=== PATIENT | male | born 1950 | race Caucasian/White ===

== ENCOUNTER 2017-08-02 09:28 | Inpatient (IN) ==
[2017-08-02] MEDS ORDERED: Aspirin 81 MG TAB.CHEW ONE (09:49)
[2017-08-02] MEDS ORDERED: 0.9 % Sodium Chloride 1,000 ML ONE ×3 (09:49→10:21)
[2017-08-02] MEDS ORDERED: *HR* Heparin 5,000 UNIT/ML VIAL ONE (09:49)
[2017-08-02] MEDS ORDERED: *HR* Ticagrelor 90 MG TABLET ONE (09:49)
[2017-08-02] MEDS ORDERED: *HR* Heparin 5,000 UNIT/ML VIAL IVP ONE (09:51)
[2017-08-02] MEDS ORDERED: *HR* Ticagrelor 90 MG TABLET PO ONE (09:51)
[2017-08-02] MEDS ORDERED: 0.9 % Sodium Chloride 1,000 ML IVC ONE (09:51)
[2017-08-02] MEDS ORDERED: Aspirin 81 MG TAB.CHEW PO ONE (09:51)
[2017-08-02 09:54] LABS: ABG Base Excess -12.7 mEq/L (-2.0 to 3.0); ABG HCO3 17 mEq/L (21-27); ABG Oxygen Saturation 100 % (95-98); ABG PCO2 50 mmHg (35-45); ABG PO2 236 mmHg (85-104); ABG TCO2 18 mEq/L (20-26)
[2017-08-02 09:56] LABS: ABG PH 7.13 pH Units (7.32-7.45); Blood Gas FiO2 100 %
[2017-08-02 09:58] LABS: Basophils # 0.1 K/mcL (0.0-0.2); Basophils % 0.7 %; Eosinophils # 0.3 K/mcL (0.0-0.6); Eosinophils % 3.3 %; Hematocrit 46.7 % (37.5-50.1); Hemoglobin 14.6 g/dL (12.9-16.9); Immature Granulocytes % 4.6 % (0-4); Lymphocytes # 2.8 K/mcL (0.6-4.6); Mean Corpuscular HGB Conc 31.3 g/dL (31.6-35.5); Mean Corpuscular Volume 95.9 fL (83.0-100.0); Mean Platelet Volume 9.2 fL (9.4-12.4); Monocytes # 0.3 K/mcL (0.0-1.3); Monocytes % 4.1 %; Neutrophils # 4.4 K/mcL (1.6-8.9); Nucleated Red Blood Cells 0.2 /100 WBC (0); Platelet Count 126 K/mcL (140-400); Red Blood Count 4.87 M/mcL (4.19-5.50); Red Cell Distribution Width 12.7 % (11.5-14.5); Segmented Neutrophils % 53.3 %
[2017-08-02] MEDS ORDERED: Sodium Bicarbonate 50 MEQ/50 ML VIAL IVP ONE (09:58)
[2017-08-02 10:04] LABS: INR 1.2; Prothrombin Time 13.3 Seconds (9.4-12.1)
--- NOTE | 2017-08-02 10:06 | Emergency Department Note ---
Disposition Clinical Impression: Cardiac arrest, Ventricular tachycardia, Respiratory acidosis, Elevated troponin STEMI (ST elevation myocardial infarction) Qualifiers: Involved coronary artery: LAD coronary artery Qualified Code(s): I21.02 - ST elevation (STEMI) myocardial infarction involving left anterior descending coronary artery Respiratory failure with hypercapnia Qualifiers: Chronicity: unspecified Qualified Code(s): J96.92 - Respiratory failure, unspecified with hypercapnia Disposition: Admitted As Inpatient Condition: Critical General Adult HPI - General Chief complaint: ED Cardiac Arrest/CPR Stated complaint: Cardiac Arrest Time Seen by Provider: 08/02/17 09:43 Source: EMS Mode of arrival: EMS Limitations: no limitations Nursing Notes Reviewed: Yes Vital Signs Reviewed: Yes - History of Present Illness HPI Narrative: 66-year-old male who according to his they went to a gas station earlier today he said he was not feeling well and has been belching and clutching his chest. His went in to get him a drink of water when she came back he was unresponsive. CPR was performed at the scene. When EMS arrived he was in V. tach and he was shocked once. He received bicarbonate by EMS. Family reports she has a past medical history of COPD. He does not have a cardiac history according to his family. He arrived with EMS after achieving ROSC. Due to severity of condition, no additional HPI is available at this time. - Related Data Home Medications Medication Instructions Recorded Confirmed Albuterol Sulfate [Albuterol 2 puff IH Q6HR PRN 08/02/17 08/02/17 Inhaler] Atorvastatin Calcium [Lipitor] 20 mg PO DAILY 08/02/17 08/02/17 Oxybutynin Chloride [Ditropan Xl] 10 mg PO DAILY 08/02/17 08/02/17 Tamsulosin HCl [Flomax] 0.4 mg PO DAILY 08/02/17 08/02/17 metFORMIN [Glucophage] 500 mg PO BIDWM 08/02/17 08/02/17 Allergies Allergy/AdvReac Type Severity Reaction Status Date / Time No Known Allergies Allergy Verified 08/02/17 10:00 Limitations: ROS unobtainable due to patients medical condition Physical Exam - General Limitations: altered mental status General appearance: obtunded - Head Head exam: atraumatic - Eye Eye exam: Present: other (right eye deviated to the right. Pupils 3mm and unresponsive) - ENT ENT exam: normal exam - Neck Neck exam: Present: normal inspection - Chest Chest inspection: Present: normal inspection - Respiratory Respiratory exam: Present: other (agonal respirations) - Cardiovascular Cardiovascular exam: Present: tachycardia - Abdominal Exam Abdominal exam: Present: soft - Extremities Exam Extremities exam: Present: normal inspection - Back Exam Back exam: Present: normal inspection - Neurological Exam Neurological exam: Present: other (obtunded. Unresponsive) - Skin Skin exam: Present: warm, dry Course Course Narrative: 66-year-old male who arrived after an arrest. When he was attached monitor he was in unresponsive ventricular tachycardia without pulse. We did 2 rounds synchronize cardioversion. During his entire stay as blood pressure never went below 120 systolic. When he arrived he was exhibiting agonal respirations was immediately intubated. See intubation note. An IO was placed and he was appearing to have a torsades type morphology on his EKG so he did receive 2 mg of magnesium and he received calcium gluconate. Initial EKG showed V. tach. Follow-up EKG showed possible lateral ST elevation which was confirmed on a third EKG. Third EKG shows definite lateral ST elevation with inferior reciprocal changes in 23 and aVF. STEMI alert was called and I personally spoke with the interventional list. I sent him the EKGs and he agreed to come in and see the patient. The initial call to the interventional was was at 948. Bedside ultrasound did demonstrate bilateral lung sliding. The patient did receive aspirin, brilinta, heparin. His pH did return as low with a respiratory acidosis. While we are correcting this with the ventilator I did order sodium bicarbonate EKG #1 shows V. tach with a rate of 185. Wide complex V. tach with possible ST changes in the lateral leads. Possible ST elevation in V4 and V5. EKG #2 demonstrates wide complex tachycardia with a rate of 140. The rhythm changes frequently throughout the EKG but again there is possible ST elevation in leads V4 V5 and V6. This EKG now demonstrates possible ST depression in leads 2, 3, aVF. After this EKG a page was put out to the maintenance superintendent. EKG #3. EKG demonstrates obvious lateral ST elevation OR with reciprocal changes of ST depression in leads [address] elevation in lead V3, V4, V5. Rate of 116. These EKGs were compared to prior EKGs with significant changes noted as prior he had a relatively normal EKG with left axis deviation and sinus rhythm. After being on the amiodarone drip he began to breathe over the ventilator and have some agitation so he did receive 4 mg of Versed while waiting for the [employer] team. Vital Signs Respiratory Rate 21 08/02/17 09:32 O2 Sat by Pulse Oximetry 100 08/02/17 09:32 Temperature 97.0 F L 08/02/17 10:01 Pulse Rate 109 08/02/17 10:28 Respiratory Rate 24 08/02/17 10:38 Blood Pressure 112/76 08/02/17 10:38 O2 Sat by Pulse Oximetry 97 08/02/17 10:28 Oxygen Delivery Oxygen Delivery Ventilator Procedures - Intubation Time out performed: No sedative: none Laryngoscope: Shekhar ET Tube Size: 7.5 ET Tube Uncuffed: No Tube Secured Depth (cm): 22 Tube Secured Location: lips Tube Placement Confirmation: visualized tube passing through cords, equal breath sounds bilaterally, no breath sounds over epigastrium, confirmation by capnometry Patient Tolerated Procedure: well Intubation Complications: none Medical Decision Making - Medical Records Medical records reviewed: Yes I reviewed the patient's medical records. - Lab Data Lab results reviewed: Yes I reviewed the patient's lab results. Result diagrams: 08/02/17 09:36 08/02/17 09:36 Lab Results 08/02/17 08/02/17 08/02/17 Range/Units 09:36 09:36 09:36 WBC 8.2 (4.3-11.1) K/mcL RBC 4.87 (4.19-5.50) M/mcL Hgb 14.6 (12.9-16.9) g/dL Hct 46.7 (37.5-50.1) % MCV 95.9 (83.0-100.0) fL MCH 30.0 (28.0-33.3) pg MCHC 31.3 L (31.6-35.5) g/dL RDW 12.7 (11.5-14.5) % Plt Count 126 L (140-400) K/mcL MPV 9.2 L (9.4-12.4) fL Immature Gran % 4.6 H (0-4) % Seg Neutrophils % 53.3 % Lymphocytes % 34.0 % Monocytes % 4.1 % Eosinophils % 3.3 % Basophils % 0.7 % Neutrophils # 4.4 (1.6-8.9) K/mcL Lymphocytes # 2.8 (0.6-4.6) K/mcL Monocytes # 0.3 (0.0-1.3) K/mcL Eosinophils # 0.3 (0.0-0.6) K/mcL Basophils # 0.1 (0.0-0.2) K/mcL Nucleated RBCs/100 WBC 0.2 H (0) /100 WBC PT 13.3 H (9.4-12.1) Seconds INR 1.2 APTT 43.0 H (26.0-36.0) Seconds ABG pH (7.32-7.45) pH Units ABG pCO2 (35-45) mmHg ABG pO2 (85-104) mmHg ABG HCO3 (21-27) mEq/L ABG Total CO2 (20-26) mEq/L ABG O2 Saturation (95-98) % ABG Base Excess (-2.0 to 3.0) mEq/L Blood Gas Modality Inspired O2 % Sodium 139 (136-145) mEq/L Potassium 3.0 L (3.5-4.5) mEq/L Chloride 101 (98-109) mEq/L Carbon Dioxide 20 (19-29) mEq/L BUN 14 (8-26) mg/dL Creatinine 1.31 H (0.72-1.25) mg/dL Est GFR ( Amer) > 60 (> 60) Est GFR (Non-Af Amer) 55 L (> 60) BUN/Creatinine Ratio 11 (6-26) Glucose 409 H (70-99) mg/dL Calculated Osmolality 306 H (280-300) Calcium 8.7 (8.6-10.8) mg/dL Magnesium 2.5 (1.6-2.6) mg/dL Troponin I (0-0.03) ng/mL 08/02/17 08/02/17 Range/Units 09:36 09:45 WBC (4.3-11.1) K/mcL RBC (4.19-5.50) M/mcL Hgb (12.9-16.9) g/dL Hct (37.5-50.1) % MCV (83.0-100.0) fL MCH (28.0-33.3) pg MCHC (31.6-35.5) g/dL RDW (11.5-14.5) % Plt Count (140-400) K/mcL MPV (9.4-12.4) fL Immature Gran % (0-4) % Seg Neutrophils % % Lymphocytes % % Monocytes % % Eosinophils % % Basophils % % Neutrophils # (1.6-8.9) K/mcL Lymphocytes # (0.6-4.6) K/mcL Monocytes # (0.0-1.3) K/mcL Eosinophils # (0.0-0.6) K/mcL Basophils # (0.0-0.2) K/mcL Nucleated RBCs/100 WBC (0) /100 WBC PT (9.4-12.1) Seconds INR APTT (26.0-36.0) Seconds ABG pH 7.13 L* (7.32-7.45) pH Units ABG pCO2 50 H (35-45) mmHg ABG pO2 236 H (85-104) mmHg ABG HCO3 17 L (21-27) mEq/L ABG Total CO2 18 L (20-26) mEq/L ABG O2 Saturation 100 H (95-98) % ABG Base Excess -12.7 L (-2.0 to 3.0) mEq/L Blood Gas Modality ASSIST CONTROL Inspired O2 100 % Sodium (136-145) mEq/L Potassium (3.5-4.5) mEq/L Chloride (98-109) mEq/L Carbon Dioxide (19-29) mEq/L BUN (8-26) mg/dL Creatinine (0.72-1.25) mg/dL Est GFR ( Amer) (> 60) Est GFR (Non-Af Amer) (> 60) BUN/Creatinine Ratio (6-26) Glucose (70-99) mg/dL Calculated Osmolality (280-300) Calcium (8.6-10.8) mg/dL Magnesium (1.6-2.6) mg/dL Troponin I 0.06 H* (0-0.03) ng/mL - Radiology Data Radiology results reviewed: Yes I reviewed the patient's radiology results. Critical Care Time Critical Care Time: Yes Total Critical Care Time: 60 Attestation: The high probability of a clinically significant, sudden or life threatening deterioration of the [CV] system(s) required my full and direct attention, intervention and personal management. The aggregate critical care time was [60] minutes. This time is in addition to time spent performing reported procedures but includes the following: [X] Data Review and interpretation [X] Patient assessment and monitoring of vital signs [X] Documentation [X] Medication orders and management Attestation Statement - Attestation Attestation: I examined this patient and my medical decision-making was reviewed with the Resident Physician, Dr. Jay. I agree with the documented findings, disposition and treatment plan as described except to the extent set forth below. Patient is a 66-year-old white male who is brought to us by EMS in cardiac arrest from a gas station. Reports from EMS states that the patient had been complaining of some chest discomfort when pulling into a gas station. His and indicated some water and when she came back she found slumped over the steering wheel. They called 911 and EMS reports that bystander CPR had been in progress when they arrived. Upon their arrival the found the patient to be in V. tach IV was established via intraosseous access and patient was defibrillated. Patient had also received epi 2 and one amp of bicarbonate in route. On arrival to the ED patient had palpable pulses and was in ventricular tachycardia. Patient was unresponsive and cyanotic. Patient was defibrillated on arrival with a subsequent tachycardic rhythm. Blood pressure was stable following defibrillation. Patient was intubated as he obtained 2 peripheral IVs , continued him on monitor and storage bin tender and pulse ox, patient placed on ventilator support with clear and equal breath sounds bilaterally following intubation. NG tube was placed and James catheter was placed. Portal chest x-ray was obtained which was negative for pneumothorax, mild pulmonary edema with adequate ET tube and NG tube placement. Patient's heart rate slowed to the 120s and we repeated an EKG which now shows clear lateral ST elevation. We immediately called the interventional list who called in the catheter team. Patient remained sinus tachycardia with stable blood pressure. Patient was started on mild sedation on the ventilator but no purposeful movements have been scenes since arrival. I agree with physical exam findings both on arrival and reevaluation of patient. I was present and supervised the intubation performed by Dr. Jay. Please see procedure note for details. Patient was started on aspirin to the NG tube, Brilinta and heparin drip. Patient was transported to the catheter lab upon their arrival. Patient's troponin was elevated. Discussed findings of our evaluation with patient's and emphasized his critical condition at this time. Following Lab patient transported to the ICU for cardiac arrest secondary to ST elevation OR.
[2017-08-02 10:09] LABS: BUN/Creatinine Ratio 11 (6-26); Blood Urea Nitrogen 14 mg/dL (8-26); Calcium 8.7 mg/dL (8.6-10.8); Carbon Dioxide 20 mEq/L (19-29); Chloride 101 mEq/L (98-109); Glucose 409 mg/dL (70-99); Magnesium 2.5 mg/dL (1.6-2.6); Osmolality,Calculated 306 (280-300); Sodium 139 mEq/L (136-145); eGFR For African Americans > 60 (> 60); eGFR For Non-African Americans 55 (> 60)
[2017-08-02] MEDS ORDERED: *HR* Heparin 10,000 UNIT/10 ML VIAL ONE (10:14)
[2017-08-02] MEDS ORDERED: Heparin 1,000 UNITS/500 mL NS 0 ML ONE (10:14)
[2017-08-02] MEDS ORDERED: Nitroglycerin 1,000 MCG/10 ML VIAL IV ONE (10:15)
[2017-08-02] MEDS ORDERED: *HR* FentaNYL (PF) 250 MCG/5 ML VIAL ONE (10:21)
[2017-08-02] MEDS ORDERED: Heparin 1,000 UNITS/500 mL NS 500 ML ONE (10:21)
[2017-08-02] MEDS ORDERED: *HR* Midazolam HCl 5 MG/5 ML VIAL IVP ONE ×3 (10:21→18:25)
[2017-08-02] MEDS ORDERED: *HR* Phenylephrine 10 MG/ML VIAL ONE (10:24)
[2017-08-02 10:52] VITALS: BP 112/76
[2017-08-02] MEDS ORDERED: Tirofiban 12.5 MG/250ML 12.5 MG/250 ML BAG ONE (11:06)
[2017-08-02 11:41] LABS: ABG Base Excess -9.4 mEq/L (-2.0 to 3.0); ABG HCO3 18 mEq/L (21-27); ABG Oxygen Saturation 75 % (95-98); ABG PCO2 46 mmHg (35-45); ABG PH 7.21 pH Units (7.32-7.45); ABG TCO2 20 mEq/L (20-26)
[2017-08-02 11:42] LABS: Blood Gas FiO2 100 %
[2017-08-02 11:44] LABS: ABG PO2 49 mmHg (85-104)
[2017-08-02] MEDS ORDERED: Furosemide 40 MG/4 ML VIAL ONE (11:46)
[2017-08-02] MEDS ORDERED: Furosemide 40 MG/4 ML VIAL IVP ONE (12:01)
[2017-08-02] MEDS ORDERED: Tirofiban 12.5 MG/250ML 12.5 MG/250 ML BAG IVC SCH (12:15)
[2017-08-02] MEDS ORDERED: Lacri-Lube 3.5 GM TUBE BOTH EYES PRN (12:26)
[2017-08-02] MEDS ORDERED: FentaNYL (PF) 1,000 MCG in 0.9 % Sodium Chloride 80 ML IVC SCH (12:30)
[2017-08-02] MEDS ORDERED: Dexmedetomidine HCl 400 MCG/100 ML MLS IVC SCH (12:30)
[2017-08-02] MEDS ORDERED: Amiodarone Premix 360 MG/200 ML BAG IVC ONE (12:32)
[2017-08-02] MEDS ORDERED: 0.9 % Sodium Chloride 500 ML ONE (12:42)
[2017-08-02] MEDS ORDERED: Norepinephrine 4 MG in D5% in Water 250 ML IVC SCH (12:45)
--- NOTE | 2017-08-02 12:46 | Cardiology Consult Note ---
Date of Encounter: 08/02/17 Time of Encounter: 10:00 Assessment and Plan (1) Cardiac arrest Current Visit: Yes Status: Acute (2) Elevated troponin Current Visit: Yes Status: Acute (3) STEMI (ST elevation myocardial infarction) Current Visit: Yes Status: Acute Emergent cardiac cath Qualifiers: Qualified Code(s): I21.02 - ST elevation (STEMI) myocardial infarction involving left anterior descending coronary artery (4) Ventricular tachycardia Current Visit: Yes Status: Acute Amiodarone drip Discussion w patient/family: The assessment and plan as outlined above was discussed with the patient and/or family members who expressed understanding and agreement. All questions were answered. Thank you for involving us in the care of your patient. Please call with any questions. History of Present Illness Consult date: 08/02/17 History of present illness: Mr. Carlos is a 66 year old male who presented to the emergency room after cardiopulmonary arrest he has no prior known cardiac history. the patient at the time my evaluation is intubated and unresponsive and thus the history is obtained from the family and the ER staff. The states the patient was having intermittent chest pain and general feeling poorly all morning long. As a trauma to the gas station and she went into by a water when she returned she found her slumped over the steering wheel unconscious. She went back inside to call 911 S bystander CPR was reportedly started. The EMS arrived and is reported the patient was in ventricular tachycardia he received at least one shock along with 300 mg bolus of amiodarone. He was brought to the emergency room where he received at least 2 additional shocks and was started on IV drip was also intubated the states the symptoms are new started this morning they were persistent for several hours there is no precipitating or relieving factors Past Med Surg Social Fam HX - Past Medical History Medical history: COPD, diabetes Psychiatric history: no psych history - Social History Smoking Status: Current every day smoker Smokeless Tobacco Status: No Alcohol use: none Drug use: none Medications and Allergies Albuterol Sulfate [Albuterol Inhaler] 2 puff IH Q6HR PRN 08/02/17 [History] Atorvastatin Calcium [Lipitor] 20 mg PO DAILY 08/02/17 [History] Oxybutynin Chloride [Ditropan Xl] 10 mg PO DAILY 08/02/17 [History] Tamsulosin HCl [Flomax] 0.4 mg PO DAILY 08/02/17 [History] metFORMIN [Glucophage] 500 mg PO BIDWM 08/02/17 [History] 3 Allergy/AdvReac Type Severity Reaction Status Date / Time No Known Allergies Allergy Verified 08/02/17 10:00 All Systems Review: A 10-system review of systems was performed and is negative for pertinent findings except as documented above in the HPI. Physical Examination Vital Signs, Last 4 Hours Pulse Resp BP Pulse Ox 08/02/17 10:38 24 112/76 08/02/17 10:28 109 24 112/76 97 08/02/17 10:16 96 08/02/17 10:12 107 22 115/76 97 General: Other (intubated, unresponsive) HEENT: Atraumatic, Normocephaly, Mucus Membranes Moist, Other (ET tube in place) Neck: No JVD, Normal carotid pulses Cardiac: Reg Rate and Rhythm, Normal S1 and S2, No Murmur Lungs: Other (coarse breath sounds) Neuro: Other (unresponsive) Abdomen: Soft Skin: No rashes noted on visualized skin Extremities: No Clubbing, No Cyanosis, No Edema, Normal Pulses Results 08/02/17 09:36 08/02/17 09:36 Consult Discharge Plan - Plan Referrals: Graham Anguiano MD [Primary Care Provider] -
[2017-08-02] MEDS ORDERED: *HR* Dextrose 50 % in Water (Syg) 50 ML SYRINGE IVP PRN (12:53)
[2017-08-02] MEDS ORDERED: Dextrose Gel 15 GM PO PRN ×2 (12:53)
[2017-08-02] MEDS ORDERED: D5% in Water 1,000 ML IVC PRN (12:53)
--- NOTE | 2017-08-02 12:57 | Pulmonology Consult Note ---
<Viki Escalante - Last Filed: 08/02/17 13:43> Date of Encounter: 08/02/17 Time of Encounter: 12:56 Assessment and Plan (1) Acute respiratory failure with hypoxemia Current Visit: Yes Status: Acute Patient hypoxic before cardiac catheterization. Patient was intubated in the ED. Repeat ABG and adjust the vent settings as needed. (2) Cardiac arrest Current Visit: Yes Status: Acute Patient arrested outside of the hospital with unknown amount of down time. Bystanders completed CPR but qualities questionable. Patient had ROSC in the emergency department. (3) STEMI (ST elevation myocardial infarction) Current Visit: Yes Status: Acute EKG completed in the ED showed STEMI. Emergent cardiac catheterization was completed with stent placement in the LAD. Qualifiers: Involved coronary artery: LAD coronary artery Qualified Code(s): I21.02 - ST elevation (STEMI) myocardial infarction involving left anterior descending coronary artery (4) Ventricular tachycardia Current Visit: Yes Status: Acute Patient episode of V. tach per EMS. Cardioverted once by EMS and twice in the ED (5) Elevated troponin Current Visit: Yes Status: Acute Elevated at 0.06. We will continue to trend. (6) DVT prophylaxis Current Visit: Yes Status: Acute Subcutaneous heparin History of Present Illness Consult date: 08/02/17 Reason for consult: other (Cardiac arrest/Acute Respiratory Failure) Chief complaint: Acute Respiratory Failure/Cardic Arrest History of present illness: 66-year-old male who according to his they went to a gas station earlier today he said he was not feeling well and has been belching and clutching his chest. His went in to get him a drink of water when she came back he was unresponsive. Bystander CPR was performed at the scene. When EMS arrived he was in V. tach and he was shocked once. He received bicarbonate by EMS. Family reports she has a past medical history of COPD. He does not have a cardiac history according to his family.He arrived with EMS after achieving ROSC. Patient at the time of my evaluation is intubated and unresponsive and thus the history is obtained from the family and charts. Patient received at least one shock from EMS along with 300 mg bolus of amiodarone. He was brought to the emergency room where he received at least 2 additional shocks and was started on IV drip was also intubated.The states the symptoms are new started this morning they were persistent for several hours there is no precipitating or relieving factors. Patient did receive aspirin, brilinta, heparin. Patient sent to candlemaking laborer from the emergency department. Upon presentation to the ICU patient is very unstable with hypotension and diffuse mottling. Past Med Surg Social Fam HX - Past Medical History Medical history: COPD, diabetes Psychiatric history: no psych history - Social History Smoking Status: Current every day smoker Smokeless Tobacco Status: No Alcohol use: none Drug use: none Medications and Allergies Albuterol Sulfate [Albuterol Inhaler] 2 puff IH Q6HR PRN 08/02/17 [History] Atorvastatin Calcium [Lipitor] 20 mg PO DAILY 08/02/17 [History] Oxybutynin Chloride [Ditropan Xl] 10 mg PO DAILY 08/02/17 [History] Tamsulosin HCl [Flomax] 0.4 mg PO DAILY 08/02/17 [History] metFORMIN [Glucophage] 500 mg PO BIDWM 08/02/17 [History] 3 Allergy/AdvReac Type Severity Reaction Status Date / Time No Known Allergies Allergy Verified 08/02/17 10:00 ROS unobtainable: due to endotracheal tube All Systems: A 10-system review of systems was performed and is negative for pertinent findings except as documented above in the HPI. Physical Examination Vital Signs: Vital Signs, Last 4 Hours Pulse Resp BP Pulse Ox 08/02/17 10:38 24 112/76 08/02/17 10:28 109 24 112/76 97 08/02/17 10:16 96 08/02/17 10:12 107 22 115/76 97 General appearance: comatose Eyes: nonicteric ENT: oropharynx dry Neck: supple, no JVD Effort: mildly labored Auscultation: bilateral: diminished breath sounds Cardiovascular: PVC's noted Gastrointestinal: normoactive bowel sounds, non-distended Integumentary: other (Diffuse mottling) Extremities: pulses normal, cool Musculoskeletal: no deformities unable to assess due to mental status Results - Laboratory Findings CBC and BMP: 08/02/17 09:36 08/02/17 09:36 ABG ABG pH 7.21 pH Units (7.32-7.45) L 08/02/17 11:30 ABG pCO2 46 mmHg (35-45) H 08/02/17 11:30 ABG pO2 49 mmHg (85-104) L* D 08/02/17 11:30 ABG O2 Saturation 75 % (95-98) L 08/02/17 11:30 PT/INR, D-dimer PT 13.3 Seconds (9.4-12.1) H 08/02/17 09:36 Abnormal lab findings: Abnormal lab results MCHC 31.3 g/dL (31.6-35.5) L 08/02/17 09:36 Plt Count 126 K/mcL (140-400) L 08/02/17 09:36 MPV 9.2 fL (9.4-12.4) L 08/02/17 09:36 Immature Gran % 4.6 % (0-4) H 08/02/17 09:36 Nucleated RBCs/100 WBC 0.2 /100 WBC (0) H 08/02/17 09:36 PT 13.3 Seconds (9.4-12.1) H 08/02/17 09:36 APTT 43.0 Seconds (26.0-36.0) H 08/02/17 09:36 ABG pH 7.21 pH Units (7.32-7.45) L 08/02/17 11:30 ABG pCO2 46 mmHg (35-45) H 08/02/17 11:30 ABG pO2 49 mmHg (85-104) L* D 08/02/17 11:30 ABG HCO3 18 mEq/L (21-27) L 08/02/17 11:30 ABG O2 Saturation 75 % (95-98) L 08/02/17 11:30 ABG Base Excess -9.4 mEq/L (-2.0 to 3.0) L 08/02/17 11:30 Potassium 3.0 mEq/L (3.5-4.5) L 08/02/17 09:36 Creatinine 1.31 mg/dL (0.72-1.25) H 08/02/17 09:36 Est GFR (Non-Af Amer) 55 (> 60) L 08/02/17 09:36 Glucose 409 mg/dL (70-99) H 08/02/17 09:36 POC Glucose 337 (58-89) H 08/02/17 12:19 Calculated Osmolality 306 (280-300) H 08/02/17 09:36 Troponin I 0.06 ng/mL (0-0.03) H* 08/02/17 09:36 - Diagnostic Findings Chest x-ray: report reviewed, image reviewed Consult Discharge Plan - Plan Referrals: Graham Anguiano MD [Primary Care Provider] - <DarrellHéctor W - Last Filed: 08/02/17 14:31> Date of Encounter: 08/02/17 All Systems: A 10-system review of systems was performed and is negative for pertinent findings except as documented above in the HPI. Physical Examination Vital Signs: Vital Signs, Last 4 Hours Pulse Resp BP Pulse Ox 08/02/17 10:38 24 112/76 08/02/17 10:28 109 24 112/76 97 Ventilator Settings Ventilator Settings: Ventilator Settings, Last 8 Hours Ventilator Mode A/C Ventilator Tidal Volume 500 Setting Ventilator Respiratory Rate 12 Setting Positive End Expiratory 8 Pressure Results - Laboratory Findings CBC and BMP: 08/02/17 09:36 08/02/17 09:36 ABG ABG pH 7.07 pH Units (7.32-7.45) L* D 08/02/17 13:17 ABG pCO2 58 mmHg (35-45) H 08/02/17 13:17 ABG pO2 56 mmHg (85-104) L 08/02/17 13:17 ABG O2 Saturation 74 % (95-98) L 08/02/17 13:17 PT/INR, D-dimer PT 13.3 Seconds (9.4-12.1) H 08/02/17 09:36 Abnormal lab findings: Abnormal lab results MCHC 31.3 g/dL (31.6-35.5) L 08/02/17 09:36 Plt Count 126 K/mcL (140-400) L 08/02/17 09:36 MPV 9.2 fL (9.4-12.4) L 08/02/17 09:36 Immature Gran % 4.6 % (0-4) H 08/02/17 09:36 Nucleated RBCs/100 WBC 0.2 /100 WBC (0) H 08/02/17 09:36 PT 13.3 Seconds (9.4-12.1) H 08/02/17 09:36 APTT 43.0 Seconds (26.0-36.0) H 08/02/17 09:36 ABG pH 7.07 pH Units (7.32-7.45) L* D 08/02/17 13:17 ABG pCO2 58 mmHg (35-45) H 08/02/17 13:17 ABG pO2 56 mmHg (85-104) L 08/02/17 13:17 ABG HCO3 17 mEq/L (21-27) L 08/02/17 13:17 ABG Total CO2 19 mEq/L (20-26) L 08/02/17 13:17 ABG O2 Saturation 74 % (95-98) L 08/02/17 13:17 ABG Base Excess -13.7 mEq/L (-2.0 to 3.0) L 08/02/17 13:17 Potassium 3.0 mEq/L (3.5-4.5) L 08/02/17 09:36 Creatinine 1.31 mg/dL (0.72-1.25) H 08/02/17 09:36 Est GFR (Non-Af Amer) 55 (> 60) L 08/02/17 09:36 Glucose 409 mg/dL (70-99) H 08/02/17 09:36 POC Glucose 337 (58-89) H 08/02/17 12:19 Calculated Osmolality 306 (280-300) H 08/02/17 09:36 Troponin I 0.06 ng/mL (0-0.03) H* 08/02/17 09:36 - Attending Attestation I examined this patient and my medical decision-making was reviewed with the Resident Physician. I agree with the documented findings, disposition and treatment plan as described except to the extent set forth below. We independently had [id number] contact with the patient I spent 65min of Critical Care time with this patient. It involved decision making of high complexity to assess, manipulate, and support vital organ system failure and/or to prevent further life threatening deterioration of the patient' s condition. The time involved in the performance of separately reportable procedures was not counted toward critical care time. Patient seen and examined at bedside Labs, radiology, chart personally reviewed. 66-year-old gentleman with past medical history of COPD who presented to ED by EMS after sustaining [id number] cardiac arrest leading to intubation and mechanical ventilation On admission to ED was hypoxic taken emergently to the catheter lab for STEMI. He underwent successful PCI to the LAD however noted to have worsening hypoxemia and was transferred to the ICU for further management. I admission to ICU initial blood pressure had a map rated and 65 however he quickly became hypotensive requiring levo fed infusion presented to be severely hypoxemic and mottled such that SaO2 monitoring could not keep a consistent waveform and serial arterial blood gases were needed for analysis. Blood gas was notable for a combined respiratory and metabolic acidosis and hypoxemia. was was requiring 100% FiO2 and 10-12 of PEEP to maintain PaO2 greater than 55. Chest x-ray was notable for bilateral patchy airspace disease of unclear etiology possibly related to cardiogenic pulmonary edema versus ARDS versus hemorrhage although there is no evidence of bleeding at the time of admission to ICU. There was no evidence of pneumothorax radiographically or clinically on admission to the ICU. Neurologically patient had reactive pupils and was noted to breathe over the vent however he had no purposeful neurologic movements and did not respond to painful stimuli. At this point I brought the family into the counseling office in he ICU and had brief minute meeting with the patient's and son and 2 daughters explaining the severity of his illness and overall poor prognosis given refractory hypoxemic respiratory failure and cardiogenic shock. There were clearly emotional at the dose of the severity of his clinical condition. Our initial plan was for deep sedation and neuromuscular blockade to improve hypoxemia and hopefully institute hypothermia protocol for [id number] cardiac arrest with significant neurologic dysfunction however he became increasingly cardiovascularly unstable. Despite maximal doses of levophed mean arterial pressure was below 60 and additional vasopressors were requested unfortunately patient had another cardiac arrest and ACLS was performed after approximately 3 cycles of ACLS the endotracheal tube was noted to hemorrhage blood and his chest wall was essentially broken to the point that chest compressions were directly performed on viscera. At the sign of such dramatic hemorrhage I felt that further attempts at cardiopulmonary resuscitation were futile and I brought the family and explained that the patient had . I offered my condolences and provided emotional support and arranged for bump grader operator services.
[2017-08-02] MEDS ORDERED: Insulin LISPRO 300 UNITS/3 ML VIAL SQ SCH ×2 (13:00)
[2017-08-02] MEDS ORDERED: Vecuronium 50 MG in 0.9 % Sodium Chloride 150 ML IVC SCH (13:00)
[2017-08-02] MEDS ORDERED: EPINEPHrine 1 MG in D5% in Water 250 ML IVC SCH (13:15)
[2017-08-02] MEDS ORDERED: *HR* FentaNYL (PF) 100 MCG/2 ML VIAL IVP ONE ×2 (13:16→13:24)
[2017-08-02] MEDS ORDERED: *HR* FentaNYL (PF) 100 MCG/2 ML VIAL ONE (13:17)
[2017-08-02] MEDS ORDERED: 0.9 % Sodium Chloride 500 ML IVC ONE (13:21)
[2017-08-02 13:27] LABS: ABG Base Excess -13.7 mEq/L (-2.0 to 3.0); ABG HCO3 17 mEq/L (21-27); ABG Oxygen Saturation 74 % (95-98); ABG PCO2 58 mmHg (35-45); ABG PO2 56 mmHg (85-104); ABG TCO2 19 mEq/L (20-26)
[2017-08-02] MEDS ORDERED: Vasopressin 40 UNIT in D5% in Water 100 ML IV SCH (13:30)
[2017-08-02] MEDS ORDERED: Hydrocortisone Sodium Succ 100 MG/2 ML VIAL IVP SCH (13:30)
--- NOTE | 2017-08-02 13:45 | Death Note ---
<Viki Escalante - Last Filed: 08/02/17 13:55> Discharge Sum: Summary - Date and Time Date of admission: 08/02/17 10:04 Date of : 08/02/17 Time of : 13:35 - Summary Details: Patient presented to the emergency department after cardiac arrest in the field. Per family patient has no cardiac history. While in the field EMS had to administer bicarbonate and one cardioversion. Multiple rhythms noted while in the field including V. tach, V. fib, torsades. Upon arrival to the emergency Department patient received ROSC. Patient needed to be cardioverted to additional times while in the emergency department. Upon further examination EKG showed ST segment elevation. Troponin was elevated at 0.06. Patient was sent emergently to the pathology laboratory aide. Patient received heparin, aspirin , brilinta and a stent placement in the LAD. Upon arrival to the ICU patient was acutely hypotensive with a map of less than 30. Repeat ABG showed improved acidemia but intractable hypoxemia. Multiple pressors were started but patient acutely unstable. Patient coded and chest compressions were completed. Multiple rounds of CPR and epinephrine were given. During resuscitation effort [place] blood was noted from the ET tube. This could be possibly due to trauma prior to admission. Family at bedside and determined to discontinue resuscitation effort. Patient suffered irreversible shock and hypoxic respiratory failure. - Additional Data Confirmation of as documented by pronouncing clinician: no pulse, no respirations, no heart sounds Family: at bedside Attending/PCP notified?: Yes Attending physician: Chris Paula MD Was code activated?: Yes Autopsy requested?: No license registration examiner notified?: No Organ bank notified?: No Advance directives: No Hospice patient?: No Discharge Sum: Diag - PCOD Probable Cause of : Cardiac arrest - Contributing Factors (1) Acute respiratory failure with hypoxemia Patient acutely hypoxic on arrival to the ED. He was intubated. First ABG showed significant acidemia due to hypoxemia. (2) Cardiac arrest Patient arrested outside of the emergency department. Bystander CPR was started. Approximately 10 minutes until EMS arrived. Patient showed V. tach, V. fib and asystole throughout. Cardioverted 3 times total. (3) STEMI (ST elevation myocardial infarction) In the emergency Department patient had ST segment elevation acute myocardial infarction. Troponin slightly elevated. (4) Ventricular tachycardia Patient had an episode of V. tach per EMS and in the emergency department. Discharge Sum: Prov - Provider Primary care physician: Graham Anguiano Attending physician on admission: Héctor Ramírez Consults: 08/02/17 12:01 Consult to Cardiac Rehabilitation-Phase1 [CONS] Routine Comment: Reason for Consult: AMI Call Completed: Yes Consult to Hospitalist [CONS] Stat Consulting Provider: Hospitalist [place] Reason for Consult: resp failure, STEMI Call Completed: No Consult to Nurse Navigator [CONS] Routine Comment: Pronouncing clinician: Héctor Ramírez <Héctor Ramírez - Last Filed: 08/02/17 14:31> Discharge Sum: Summary - Date and Time Date of admission: 08/02/17 10:04 - Additional Data Attending physician: Chris Paula MD Discharge Sum: Prov - Provider Primary care physician: Graham Anguiano Consults: 08/02/17 12:01 Consult to Cardiac Rehabilitation-Phase1 [CONS] Routine Comment: Reason for Consult: AMI Call Completed: Yes Consult to Hospitalist [CONS] Stat Consulting Provider: Hospitalist [place] Reason for Consult: resp failure, STEMI Call Completed: No Consult to Nurse Navigator [CONS] Routine Comment: - Attending Attestation I examined this patient and my medical decision-making was reviewed with the Resident Physician. I agree with the documented findings, disposition and treatment plan as described except to the extent set forth below. We independently had [id number] contact with the patient
[2017-08-02 13:48] LABS: ABG PH 7.07 pH Units (7.32-7.45); Blood Gas FiO2 100 %
[2017-08-02] MEDS ORDERED: Piperacillin/Tazobactam 3.375 GM in D5% in Water (Mini-Bag+) 100 ML IVPB SCH (14:00)
[2017-08-02] MEDS ORDERED: Lacri-Lube 3.5 GM TUBE BOTH EYES SCH (16:00)
--- NOTE | 2017-08-02 16:08 | Pre-Sedation Evaluation ---
Pre-sedation evaluation - Pre-sedation checklist Date of procedure: 08/02/17 Procedure: Cardiac cath Recent Vitals: Last Vital Signs Temp 97.0 F L 08/02/17 10:01 Pulse 109 08/02/17 10:28 Resp 24 08/02/17 10:38 BP 112/76 08/02/17 10:38 Pulse Ox 97 08/02/17 10:28 H&P (including ROS) documented in medical record: Yes Previous reaction to sedatives/anesthetics: No Possible difficult airway: No ASA Classification *see protocol: CLASS V-Morbid complications, operation only hope of survival, [id number] to any of the above to indicate emergent Plan of Care: Pt appropriate candidate for procedure/moderate/conscious sedation , Risks/benefits of procedure/sedation discussed w/ patient/family
--- NOTE | 2017-08-02 16:13 | Procedure Note ---
Date of procedure: 08/02/17 Pre-op diagnosis: STEMI, Cardiac arrest Post-op diagnosis: same Procedure: Cardiac cath and PCI brief op-note LM20% LAD 99% mid at D2 bifurcation w/ thrombus D2 99% ostium with thrombus Cx <50% RCA 50% mid, 70% distal LVEF 40-45% PTCA LAD 2.25 x 28 RIVER Anesthesia: none, other Surgeon: Chris Paula Condition: critical Disposition: ICU
[2017-08-02] MEDS ORDERED: Amiodarone Premix 360 MG/200 ML BAG IVC SCH (18:00)
[2017-08-02] MEDS ORDERED: *HR* Heparin 5,000 UNIT/ML VIAL SQ SCH (18:00)
[2017-08-02] MEDS ORDERED: Pantoprazole 40 MG VIAL IVP SCH (18:00)
[2017-08-02] MEDS ORDERED: *HR* Magnesium Sulfate 2 GM/50 ML PIGGYBACK IVPB ONE (18:25)
[2017-08-02] MEDS ORDERED: *HR* Amiodarone 150 MG/3 ML VIAL IVPB ONE ×2 (18:25)
[2017-08-02] MEDS ORDERED: *HR* EPINEPHrine 1 MG/10 ML SYRINGE IVP ONE ×2 (18:25)
[2017-08-02] MEDS ORDERED: Chlorhexidine Rinse 15 ML MOUTHWASH MM SCH (21:00)
[2017-08-02] MEDS ORDERED: *HR* Ticagrelor 90 MG TABLET GTUBE SCH (21:00)
--- NOTE | 2017-08-04 08:26 | Invasive Diagnostic Lab Proc ---
Name: Wes Carlos Date of Study: 08/02/2017 Date: 1950 Ht: 66.9in Medical Record#: [id number] Age: 66 Wt: 152.12lb Gender: Male BSA: 1.8 Order #: [id number] BMI: 23.88 Physicians Procedure Physician: Chris Paula MD Referring MD: Referring MD: Staff Name Position Time In Dimitri Little RN Promotion Producer 10:45 AM Pascale Velásquez RT (R) Monitor 10:45 AM Juany Mckenzie RT (R) Scrub 10:46 AM Indications Indication STEMI Procedures Performed Procedure L HRT ARTERY/VENTRICLE ANGIO PRQ CARD REVASC OR 1 VSL PRQ CARDIAC ANGIO ADDL ART CENTRAL LINE PLACEMENT Pre-Procedure Checklist Informed consent is complete signed and on chart. H&P is on chart. ID band is on and ID verified with patient. Pt not NPO for procedure and MD aware. The procedure was described for the patient and questions were answered. Blood Pressure: 131/87 ECG is on chart. Rhythm: Sinus Tachycardia Plan of Care Patient will tolerate the procedure without complications. Adequate level of comfort will be maintained. Hemodynamics will remain stable Patient will recover from procedure without complications. Respiratory function will be maintained. Cardiac rhythm will remain stable. Patient temperature will be maintained. Patient and/or family have verbalized understanding of the procedure. Patient Education Intravenous Access Time IV Size Location DC'd Fluid/Drip Rate Units RN 10:14 AM 18g 1 1/4" Patent On Arrival Rt Antecubital 0.9NaCl 25 ml/hr Dimitri Little RN 10:14 AM 16 Lt Antecubital 0.9NaCl 25 ml/hr Dimitri Little RN Allergies No Known Allergies NKDA Vital Signs Time BP (mmHg) HR (bpm) O2 Sat. RR (bpm) LOC 10:45 AM 131 / 87 107 100 % 20 10:51 AM / % 2 = Responds to voice 10:45 AM 131 / 87 98 92 % 35 10:50 AM 131 / 95 103 90 % 38 10:55 AM 135 / 87 108 91 % 27 11:00 AM 141 / 96 106 90 % 28 11:05 AM 136 / 93 110 89 % 26 11:10 AM 143 / 96 113 88 % 58 11:15 AM 140 / 94 104 88 % 63 11:20 AM 133 / 90 112 84 % 58 11:25 AM 136 / 86 113 82 % 59 11:30 AM 129 / 83 109 83 % 30 11:35 AM 121 / 83 112 85 % 32 11:40 AM 115 / 84 115 84 % 30 11:45 AM 118 / 81 115 84 % 54 11:50 AM 111 / 76 116 84 % 30 11:55 AM 103 / 74 116 83 % 32 Procedural Medications Time Medication Dose Units Method Given By 10:51 AM Lidocaine 2% 13 ml Subcutaneous Chris Paula MD 10:54 AM Oxygen 100 L/min mechanical ventilator Respiratory 10:55 AM Amiodarone 1 mg/min Intravenous 11:07 AM Aggrastat Bolus: 33 ml Intravenous Dimitri Little RN 11:15 AM Aggrastat 5mg/100ml 6 ml Intravenous Dimitri Little RN 11:46 AM Lasix 40 mg Intravenous Dimitri Little RN Dino Score Preprocedure Postprocedure Activity 0- Unable to move extremities or lift head Activity 0- Unable to move extremities or lift head Circulation 2- SBP +/= 20 points of pre-anesthetic level Circulation 2- SBP +/= 20 points of pre-anesthetic level Consciousness 0- Non-responsive Consciousness 0- Non-responsive O2 Saturation 1- Needs O2 inhalation to maintain O2 saturation of 90% O2 Saturation 1- Needs O2 inhalation to maintain O2 saturation of 90% Respiratory 0- Apneic requires ventilator or assisted respiration Respiratory 0- Apneic requires ventilator or assisted respiration Total Score 3 Total Score 3 Contrast Agent: Isovue Diagnostic Contrast: 90 ml Total Contrast: 90 ml Fluoro Dose: 632 mGy Activated Clotting Time Time Seconds to Clot 11:00 AM 400 11:16 AM 253 Procedure Log Time Note Enter By 10:11 AM CathStat 10:45 AM Vitals capture started with the following parameters, Patient=Adult, Interval=5 min, Initial Wtfonbgs=765 mmHg, Deflation Rate=5 mmHg, Cuff placed on Left Arm 10:45 AM HR=98 bpm, NLNX=990/87 mmhg, SpO2=92.0 %, Resp=35 B/min 10:45 AM Dimitri Little RN Position: Promotion Producer Time in: 10:45 [email or web address] 10:46 AM Pascale Velásquez RT (R) Position: Monitor Time in: 10:45 [email or web address] 10:46 AM Juany Mckenzie RT (R) Position: Scrub Time in: 10:46 csmith 10:46 AM Patient charges- Angio tray pack, Navilyst 3mm J, Pulse Oximetry and ACIST tubing and transducer csmith 10:46 AM Case Delayed No csmith 10:50 AM Recorded ECG: RB=582 Condition=Condition 1 10:50 AM Pressure channel 2 zeroed. 10:50 AM ZN=914 bpm, JATL=458/95 mmhg, SpO2=90.0 %, Resp=38 B/min 10:51 AM Physician arrived 10:51 csmith 10:51 AM Meet and greet completed csmith 10:51 AM Sign in performed according to hospital policy. [email or web address] 10:51 AM Procedure start 10:51 csmith 10:51 AM Time: 10:51 Patient comfortable and pain free: Yes [email or web address] 10:51 AM Time out performed according to hospital policy [email or web address] 10:51 AM Time: 51 13 ml Lidocaine 2% to right groin Subcutaneous Given by Chris Paula MD csmith 10:53 AM Access obtained by percutaneous puncture. 6Fr 10cm Terumo [place] sheath placed in right Femoral artery. [id number] csmith 10:53 AM 5Fr FR 4 catheter inserted over the wire DN csmith 10:53 AM 0.035 145cm Navilyst 3mmJ wire [id number] csmith 10:54 AM Time: 10:54 Oxygen on at 100 L/min per mechanical ventilator by Respiratory csmith 10:55 AM Pressure channel 2 zeroed. 10:55 AM Patient arrived at 10:55 with Amiodarone Intravenous drip @ 1 mg/min csmith 10:55 AM PB=133 bpm, LMAL=284/87 mmhg, SpO2=91.0 %, Resp=27 B/min, Comment=ST 10:56 AM Wire removed csmith 10:56 AM 0.035 180cm Glidewire wire [id number] csmith 10:57 AM Wire removed csmith 10:58 AM Recorded Pressure: Ao, GT=557, Condition=Condition 1 (Aorta) Ao 129/84/104 10:59 AM RCA angiography performed in multiple views. [email or web address] 10:59 AM Catheter removed csmith 11:00 AM 6Fr XB LAD 3.5 [place] Bright-Tip guide catheter was used to cannulate the PCI vessel successfully. reused? No csmith 11:00 AM IE=597 bpm, CGKO=138/96 mmhg, SpO2=90.0 %, Resp=28 B/min 11:03 AM LCA angiography performed in multiple views. [email or web address] 11:03 AM Coronary Dominance: right csmith 11:05 AM Recorded Pressure: Ao, EI=496, Condition=Condition 1 (Aorta) Ao 127/83/102 11:05 AM SO=613 bpm, JGTR=867/93 mmhg, SpO2=89.0 %, Resp=26 B/min, Comment=ST 11:06 AM Time: 10:51 Patient comfortable and pain free: Yes csmith 11:06 AM Time: 10:51LOC: 2 = Responds to voice csmith 11:06 AM .014 Whisper 190cm guide wire across target lesion- successful. reused? No [facility] 11:07 AM Time: 11:07 Aggrastat Bolus: 33 ml Intravenous Given by Dimitri Little RN Gibson pump [facility] 11:10 AM .014 Whisper 190cm guide wire across target lesion- successful. reused? No [email or web address] 11:10 AM At 11:12 the ACT was 400 [facility]. [email or web address] 11:10 AM SH=479 bpm, YPEY=613/96 mmhg, SpO2=88.0 %, Resp=58 B/min, Comment=ST 11:12 AM Time: 11:12 Aggrastat 5mg/100ml 6 ml Intravenous Given by Dimitri Little RN [place] pump [email or web address] 11:13 AM 2.25 mm x 15 mm Emerge Monorail balloon across target lesion- successful. reused? No [email or web address] 11:14 AM Balloon inflated @ 8 soniya for 15 seconds [email or web address] 11:15 AM FI=204 bpm, CUTL=108/94 mmhg, SpO2=88.0 %, Resp=63 B/min, Comment=ST 11:16 AM Balloon inflated @ 8 soniya for 15 seconds [email or web address] 11:17 AM Recorded Pressure: Ao, FJ=200, Condition=Condition 1 (Aorta) Ao 133/90/107 11:18 AM Balloon catheter removed intact. [email or web address] 11:18 AM 2.25mm x 28mm Rebel [employer] bare metal stent across target lesion- successful Lot #[id number] [email or web address] 11:20 AM ZT=387 bpm, PRTR=188/90 mmhg, SpO2=84.0 %, Resp=58 B/min, Comment=ST 11:21 AM Stent deployed @ 12 soniya for 15 seconds [email or web address] 11:21 AM Stent delivery system removed intact. [email or web address] 11:24 AM 2.0 mm x 10 mm Emerge Monorail balloon across target lesion- successful. reused? No [email or web address] 11:25 AM KD=361 bpm, EDBQ=691/86 mmhg, SpO2=82.0 %, Resp=59 B/min, Comment=ST 11:27 AM Balloon inflated @ 10 soniya for 12 seconds [email or web address] 11:27 AM Balloon catheter removed intact. [email or web address] 11:27 AM Balloon catheter removed intact. [email or web address] 11:28 AM Guide wire removed intact. [email or web address] 11:28 AM 5Fr Pigtail catheter inserted over the wire [email or web address] 11:30 AM Catheter selectively placed in left [email or web address] 11:30 AM VE=615 bpm, XWVP=121/83 mmhg, SpO2=83.0 %, Resp=30 B/min, Comment=ST 11:31 AM Bolus angiogram of left Ventricle complete: 10 ml/s [email or web address] 11:31 AM Recorded Pressure: LV, HR=56, Condition=Condition 1 (Left Ventricle) LV 104/5/5 11:31 AM Recorded Pressure: LV, HR=28, Condition=Condition 1 (Left Ventricle) LV 117/1/51 11:31 AM Recorded Pressure: LV, HR=29, Condition=Condition 1 (Left Ventricle) LV 117/3/6 11:32 AM Recorded Pressure: LV, Ao, HR=89, Condition=Condition 1 (Left Ventricle) LV 83/4/7, (Aorta) Ao 113/77/94 11:33 AM Catheter removed 3 11:34 AM Central line placement by Dr. Paula [email or web address] 11:35 AM YF=128 bpm, FXUO=123/83 mmhg, SpO2=85.0 %, Resp=32 B/min, Comment=ST 11:40 AM FQ=033 bpm, VVSP=129/84 mmhg, SpO2=84.0 %, Resp=30 B/min 11:44 AM Physician suturing Central line in Rt groin. [email or web address] 11:45 AM FF=099 bpm, BKEN=030/81 mmhg, SpO2=84.0 %, Resp=54 B/min, Comment=ST 11:46 AM Time: 11:46 Lasix 40 mg Intravenous Given by Dimitri Little RN [email or web address] 11:48 AM Procedure completed at 11:48 [email or web address] 11:49 AM Sign out completed: Radiation Dose 632.24 mGy Fluoro Time: 8.3 Isovue 370 - 200ml contrast 90 ml given by Chris Paula MD. Complications: NoneCardiac Rehab Consult needed: YesConfirmed administered medications: Yes [email or web address] 11:49 AM Sheath left in place to be pulled on floor/holding areaV+Pad [email or web address] 11:50 AM YY=253 bpm, MXRY=185/76 mmhg, SpO2=84.0 %, Resp=30 B/min, Comment=ST 11:51 AM Post ECG Sinus Tachycardia [email or web address] 11:51 AM Post Blood Pressure 111/76 [email or web address] 11:52 AM Information taught Cardiac Cath and PCI [email or web address] 11:52 AM Education needs Procedure, Plan of Care, and Disease Process [email or web address] 11:52 AM Learning barriers :None [email or web address] 11:52 AM Education Methods Verbal [email or web address] 11:52 AM Education evaluation Able to repeat information [email or web address] 11:52 AM Site status No bleeding/hematoma - Rt Groin as reported by Juany Mckenzie RT (R) at 11:52 [email or web address] 11:52 AM Opsite applied [email or web address] 11:52 AM Delay to floor No [email or web address] 11:52 AM Family placed in consult room. [email or web address] 11:52 AM Fluoro Time: 8.3 [email or web address] 11:52 AM Isovue 370 - 200ml contrast 90 ml given by Chris Paula MD. [email or web address] 11:52 AM Radiation Dose 632.24 mGy [email or web address] 11:53 AM Report given to Muriel COTTO Pt taken to ICU Room #9. 11:53 [email or web address] 11:55 AM OT=410 bpm, XZLA=923/74 mmhg, SpO2=83.0 %, Resp=32 B/min, Comment=ST 12:05 PM Patient out of room: 12:05 [email or web address] Complications Complication None Hemodynamics Pressures Site Systolic/A Wave Diastolic/V Wave Mean AO 129 84 104 AO 127 83 102 AO 133 90 107 LV 104 5 5 LV 117 1 51 LV 117 3 6 LV 83 4 7 AO 113 77 94 Post Procedure Information Blood Pressure: 111/76 mmHg Rhythm: Sinus Tachycardia Post procedural instructions were given Site Checks Time Location Status Staff Sheath In? Note 11:52 AM Rt Groin No bleeding/hematoma Juany Mckenzie RT (R) Pulses Time Site Pre-Procedure Post-Procedure Note 08/02/2017 10:44:00 AM Bilateral DP & PT Doppler Doppler Updated by Pascale Velásquez [email or web address]) on 08/02/2017 12:05:55 PM electronically signed on 08/02/2017 12:06:19 PM with status of Final
[2017-08-04] MEDS ORDERED: Aspirin 81 MG TAB.CHEW GTUBE SCH (09:00)
--- NOTE | 2017-08-04 09:59 | Electrocardiograph Report ---
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
--- NOTE | 2017-08-04 10:00 | Electrocardiograph Report ---
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
--- NOTE | 2017-08-04 10:01 | Electrocardiograph Report ---
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
--- NOTE | 2017-08-04 10:52 | Electrocardiograph Report ---
[address] [place], [place] [address] Test Date: 2017-08-02 Pat Name: Wes Carlos Department: 109 Room: [facility] Gender: M Riprap Placing Supervisor: MIGUELITO : 1950 Requested By: Chris Paula Order Number: [id number] Reading MD: Bernabe Chahal MD Measurements Intervals [place] Rate: 98 P: 75 HI: 166 QRS: -80 QRSD: 96 T: 88 QT: 279 QTc: 334 Interpretive Statements SINUS RHYTHM LOW QRS VOLTAGE IN EXTREMITY LEADS LEFT ANTERIOR FASCICULAR BLOCK ANTEROSEPTAL MYOCARDIAL INFARCTION, PROBABLY RECENT ACUTE [place] Electronically Signed On 08-04-2017 10:50:41 EDT by Bernabe Chahal MD
== END 2017-08-02 18:26 | disposition expired | DRG 248 ==
LOC: EMEROO 09:28 → ICNU 10:04
PROVIDERS: ADMIT Internal Medicine Cardiovascular Disease; ATTEND Internal Medicine Cardiovascular Disease